=== PATIENT | male | born 1945 | race Caucasian/White ===

== ENCOUNTER 2022-03-22 09:44 | Inpatient (IN) | payer MEDICARE ==
[~2022-03-22] VITALS: Ht 152.4 cm; Wt 59.0 kg
[2022-03-22] MEDS ORDERED: SODIUM CHLORIDE 0.9% 1000ML 1,000 ML IV STA ×2 (10:02→10:53)
[2022-03-22 10:36] LABS: BASOPHILS % 2.9 % (0.0-1.0); EOSINOPHILS # (AUTO) 1.3 (0.0-0.4); HEMATOCRIT 24.1 % (38.2-49.6); HEMOGLOBIN 7.1 g/dL (14.0-18.0); LYMPHOCYTES % 6.1 % (18.0-39.1); MEAN CORPUSCULAR HEMOGLOBIN 22.5 pg (28-32); MEAN CORPUSCULAR HGB CONC 29.5 g/dL (31-35); MEAN CORPUSCULAR VOLUME 76.3 fL (81-99); MONOCYTES # (AUTO) 3.1 (0.2-0.8); MONOCYTES % 9.5 % (4.4-11.3); NEUTROPHILS # (AUTO) 19.6 (2.1-6.9); NEUTROPHILS % 59.8 % (38.7-80.0); PLATELET COUNT 239 x10e3/uL (140-360); RED BLOOD COUNT 3.16 x10e6/uL (4.3-5.7); RED CELL DISTRIBUTION WIDTH 19.4 % (11.7-14.4)
[2022-03-22 10:46] LABS: CLARITY,URINE TURBID (CLEAR); COLOR,URINE YELLOW (YELLOW); LEUKOCYTE ESTERASE ,URINE LARGE (NEGATIVE); NITRITE,URINE NEGATIVE (NEGATIVE); PROTEIN,URINE DIPSTICK 1+ (NEGATIVE)
[2022-03-22 10:47] LABS: BACTERIA,URINE MANY /HPF; EPITHELIAL CELLS,URINE FEW /LPF; KETONES,URINE NEGATIVE (NEGATIVE); RBC,URINE >50 /HPF (0-5); URINE UROBILINOGEN 0.2 mg/dL (0.2 - 1); WBC,URINE (MAN) >50 /HPF (0-5)
[2022-03-22 10:55] LABS: INR 1.14; PROTHROMBIN TIME 15.6 seconds (11.9-14.5)
[2022-03-22 10:56] LABS: PARTIAL THROMBOPLASTIN TIME 37.1 seconds (23.8-35.5)
[2022-03-22 10:59] LABS: ALBUMIN/GLOBULIN RATIO 0.9 (0.8-2.0); ANION GAP 11.8 mmol/L (8-16); CALCIUM 8.3 mg/dL (8.4-10.2); CREATININE, SERUM 0.75 mg/dL (0.72-1.25); MAGNESIUM 2.1 MG/DL (1.3-2.1); POTASSIUM 3.8 mmol/L (3.5-5.1)
[2022-03-22] MEDS ORDERED: Vancomycin IV 1 GM in SODIUM CHLORIDE 0.9% 250ML 250 ML IV ONE (11:00)
[2022-03-22] MEDS ORDERED: MEROPENEM 1 GM in SODIUM CHLORIDE 0.9% 100 ML IV ONE (11:00)
[2022-03-22 11:05] LABS: CREATINE KINASE MB 1.6 ng/mL (0-5.0)
[2022-03-22 11:18] LABS: ANISOCYTOSIS SLIGHT; BAND NEUTROPHILS % (MANUAL) 1 %; EOSINOPHILS % (MANUAL) 5 % (0-7); LYMPHOCYTES % (MANUAL) 9 % (19-48); METAMYELOCYTES % (MANUAL) 1 % (0-0); MONOCYTES % (MANUAL) 3 % (3.4-9.0); MYELOCYTES % (MANUAL) 4 % (0-0); NEUTROPHILS % (MANUAL) 74 % (40-74); PLATELET ESTIMATE ADEQUATE; PLATELET MORPHOLOGY COMMENT NORMAL; POIKILOCYTOSIS SLIGHT; RBC MORPHOLOGY COMMENT NORMAL
[2022-03-22] MEDS ORDERED: IOPAMIDOL 370 MG/ML 100 ML INFUS..BTL INJ ONE (11:33)
[2022-03-22] MEDS: SODIUM CHLORIDE 0.9% 1000ML 1,000 ML IV SCH (14:45)
[2022-03-22] MEDS: MEROPENEM 1 GM in SODIUM CHLORIDE 0.9% 100 ML IV SCH (14:45)
[2022-03-22] MEDS: ONDANSETRON HCL INJ 2MG/ML 2ML 2 MG/ML VIAL IV PRN (15:01)
[2022-03-22] MEDS: DOCUSATE SODIUM 100 MG CAP PO SCH (17:00)
[2022-03-22 17:02] VITALS: BP 122/55
[2022-03-22 17:53] VITALS: BP 122/55
[2022-03-22 18:00] LABS: FERRITIN 8.53 ng/mL (21.81-274.66)
[2022-03-22 18:01] VITALS: BP 122/55
[2022-03-22 20:00] VITALS: BP 121/61
[2022-03-22] MEDS: SENNOSIDES 8.6 MG TAB PO SCH (20:22)
[2022-03-22 20:23] LABS: CREATINE KINASE MB 1.9 ng/mL (0-5.0)
[2022-03-23] VITALS (7 sets, daily range): BP systolic 112–134; BP diastolic 55–77
[2022-03-23] MEDS: SODIUM CHLORIDE 0.9% 1000ML 1,000 ML IV SCH ×3 (02:10→20:40)
[2022-03-23] MEDS: MEROPENEM 1 GM in SODIUM CHLORIDE 0.9% 100 ML IV SCH ×2 (02:10→16:10)
[2022-03-23 05:41] LABS: BASOPHILS # (AUTO) 0.8 (0.0-0.1); BASOPHILS % 2.3 % (0.0-1.0); EOSINOPHILS # (AUTO) 1.2 (0.0-0.4); EOSINOPHILS % 3.7 % (0.0-6.0); HEMATOCRIT 21.3 % (38.2-49.6); LYMPHOCYTES # (AUTO) 1.6 (1.0-3.2); LYMPHOCYTES % 5.1 % (18.0-39.1); MEAN CORPUSCULAR HEMOGLOBIN 22.8 pg (28-32); MEAN CORPUSCULAR HGB CONC 30.5 g/dL (31-35); MEAN CORPUSCULAR VOLUME 74.7 fL (81-99); MONOCYTES # (AUTO) 2.6 (0.2-0.8); MONOCYTES % 7.9 % (4.4-11.3); NEUTROPHILS # (AUTO) 20.2 (2.1-6.9); NEUTROPHILS % 62.1 % (38.7-80.0); PLATELET COUNT 241 x10e3/uL (140-360); RED BLOOD COUNT 2.85 x10e6/uL (4.3-5.7); RED CELL DISTRIBUTION WIDTH 19.1 % (11.7-14.4)
[2022-03-23 05:53] LABS: HEMOGLOBIN 6.5 g/dL (14.0-18.0)
[2022-03-23 06:07] LABS: CREATINE KINASE MB 2.2 ng/mL (0-5.0)
[2022-03-23] MEDS ORDERED: SODIUM CHLORIDE 0.9% 250ML 250 ML IV ONE (06:15)
[2022-03-23 06:23] LABS: PHOSPHORUS 2.6 MG/DL (2.3-4.7)
[2022-03-23 06:29] LABS: ALBUMIN 2.7 g/dL (3.5-5.0); ALBUMIN/GLOBULIN RATIO 0.9 (0.8-2.0); ANION GAP 13.6 mmol/L (8-16); CALCIUM 7.7 mg/dL (8.4-10.2); CREATININE, SERUM 0.57 mg/dL (0.72-1.25); POTASSIUM 3.6 mmol/L (3.5-5.1)
[2022-03-23 08:09] LABS: BAND NEUTROPHILS % (MANUAL) 1 %; EOSINOPHILS % (MANUAL) 17 % (0-7); LYMPHOCYTES % (MANUAL) 4 % (19-48); METAMYELOCYTES % (MANUAL) 6 % (0-0); MONOCYTES % (MANUAL) 1 % (3.4-9.0); MYELOCYTES % (MANUAL) 10 % (0-0); NEUTROPHILS % (MANUAL) 59 % (40-74)
[2022-03-23 08:10] LABS: ANISOCYTOSIS MODERATE; HYPOCHROMASIA MODERATE; MICROCYTOSIS MODERATE; PLATELET ESTIMATE ADEQUATE; PLATELET MORPHOLOGY COMMENT FEW LARGE; RBC MORPHOLOGY COMMENT ABNORMAL
[2022-03-23] MEDS: SENNOSIDES 8.6 MG TAB PO SCH ×2 (09:00→20:40)
[2022-03-23] MEDS: DOCUSATE SODIUM 100 MG CAP PO SCH ×2 (09:00→16:10)
[2022-03-23] MEDS ORDERED: SODIUM CHLORIDE 0.9% 250ML 250 ML ONE (09:42)
[2022-03-23] MEDS: ONDANSETRON HCL INJ 2MG/ML 2ML 2 MG/ML VIAL IV PRN (09:45)
[2022-03-23] MEDS ORDERED: PANTOPRAZOLE SO40 MG PO (10:13)
[2022-03-23] MEDS ORDERED: CEPHALEXIN500 MG PO (10:13)
[2022-03-23] MEDS ORDERED: ELIQUIS2.5 MG PO (10:13)
[2022-03-23] MEDS ORDERED: SIMETHICONE80 MG PO (10:13)
[2022-03-23] MEDS ORDERED: CYMBALTA20 MG PO (10:13)
[2022-03-23] MEDS ORDERED: NEURONTIN100 MG PO (10:13)
[2022-03-23] MEDS ORDERED: ATORVASTATIN CA20 MG PO (10:13)
[2022-03-23] MEDS ORDERED: METOPROLOL TART25 MG PO (10:13)
[2022-03-23] MEDS ORDERED: CLOPIDOGREL75 MG PO (10:13)
[2022-03-23] MEDS ORDERED: TYLENOL325 MG PO (10:13)
[2022-03-23] MEDS ORDERED: MAGNESIUM OXID400 MG PO (10:13)
[2022-03-23] MEDS ORDERED: CYCLOBENZAPRINE5 MG PO (10:13)
[2022-03-23] MEDS ORDERED: NITROGLYCERIN0.4 MG SL (10:13)
[2022-03-23] MEDS ORDERED: MIRALAX17 GM PO (10:13)
[2022-03-23] MEDS ORDERED: SUCRALFATE1 GM PO (10:13)
[2022-03-23] MEDS ORDERED: MINIPRESS1 MG PO (10:13)
[2022-03-23] MEDS ORDERED: LACTULOSE20 GM/30 M PO (10:13)
[2022-03-23] MEDS ORDERED: PROAIR HFA INH8.5 GM INH (10:13)
[2022-03-23] MEDS ORDERED: SENOKOT-S TABL1 EACH PO (10:13)
[2022-03-23] MEDS ORDERED: ULTRAM50 MG PO (10:13)
[2022-03-23] MEDS ORDERED: ACETAMINOPHEN 325 MG TAB PO PRN (14:15)
[2022-03-23] MEDS: ACETAMIN/BUTALBITAL/CAFFEINE TAB PO PRN (15:44)
[2022-03-23] MEDS ORDERED: ACETAMIN/BUTALBITAL/CAFFEINE TAB PO PRN (15:45)
[2022-03-23 19:34] LABS: CREATINE KINASE MB 2.2 ng/mL (0-5.0)
[2022-03-23 20:45] LABS: HEMATOCRIT 26.7 % (38.2-49.6); HEMOGLOBIN 8.2 g/dL (14.0-18.0)
[2022-03-24] VITALS (7 sets, daily range): BP systolic 119–162; BP diastolic 62–97
[2022-03-24] MEDS: MEROPENEM 1 GM in SODIUM CHLORIDE 0.9% 100 ML IV SCH ×2 (02:32→15:33)
[2022-03-24 05:46] LABS: BASOPHILS # (AUTO) 1.9 (0.0-0.1); BASOPHILS % 3.9 % (0.0-1.0); EOSINOPHILS # (AUTO) 1.7 (0.0-0.4); EOSINOPHILS % 3.6 % (0.0-6.0); HEMATOCRIT 29.3 % (38.2-49.6); HEMOGLOBIN 9.2 g/dL (14.0-18.0); LYMPHOCYTES # (AUTO) 2.1 (1.0-3.2); LYMPHOCYTES % 4.4 % (18.0-39.1); MEAN CORPUSCULAR HEMOGLOBIN 24.5 pg (28-32); MEAN CORPUSCULAR HGB CONC 31.4 g/dL (31-35); MEAN CORPUSCULAR VOLUME 77.9 fL (81-99); MONOCYTES # (AUTO) 3.4 (0.2-0.8); NEUTROPHILS # (AUTO) 23.2 (2.1-6.9); NEUTROPHILS % 47.5 % (38.7-80.0); PLATELET COUNT 211 x10e3/uL (140-360); RED BLOOD COUNT 3.76 x10e6/uL (4.3-5.7); RED CELL DISTRIBUTION WIDTH 18.6 % (11.7-14.4)
[2022-03-24 06:02] LABS: ANION GAP 10.4 mmol/L (8-16); CREATININE, SERUM 0.61 mg/dL (0.72-1.25); MAGNESIUM 2.3 MG/DL (1.3-2.1); POTASSIUM 3.4 mmol/L (3.5-5.1)
[2022-03-24] MEDS: SODIUM CHLORIDE 0.9% 1000ML 1,000 ML IV SCH ×2 (06:44→18:16)
[2022-03-24 07:32] LABS: BAND NEUTROPHILS % (MANUAL) 7 %; EOSINOPHILS % (MANUAL) 3 % (0-7); LYMPHOCYTES % (MANUAL) 4 % (19-48); METAMYELOCYTES % (MANUAL) 7 % (0-0); MONOCYTES % (MANUAL) 4 % (3.4-9.0); MYELOCYTES % (MANUAL) 13 % (0-0); NEUTROPHILS % (MANUAL) 58 % (40-74); PROMYELOCYTES % (MANUAL) 2 % (0-0)
[2022-03-24 07:33] LABS: ANISOCYTOSIS MODERATE; HYPOCHROMASIA MODERATE; MICROCYTOSIS MODERATE; PLATELET ESTIMATE ADEQUATE; PLATELET MORPHOLOGY COMMENT FEW LARGE; POLYCHROMASIA FEW; RBC MORPHOLOGY COMMENT ABNORMAL
[2022-03-24] MEDS: DOCUSATE SODIUM 100 MG CAP PO SCH ×2 (08:43→18:07)
[2022-03-24] MEDS: SENNOSIDES 8.6 MG TAB PO SCH ×2 (08:43→22:09)
[2022-03-24] MEDS: SODIUM FERRIC GLUCONATE COMPLX 125 MG in SODIUM CHLORIDE 0.9% 100 ML IV SCH (08:44)
[2022-03-24] MEDS ORDERED: POTASSIUM PHOSPHATE 15 MM in SODIUM CHLORIDE 0.9% 250ML 250 ML IV ONE (09:00)
[2022-03-24] MEDS: METRONIDAZOLE 500MG/NS 100ML 100 ML IV SCH ×2 (10:26→18:07)
[2022-03-24] MEDS: ACETAMIN/BUTALBITAL/CAFFEINE TAB PO PRN (12:52)
[2022-03-25] VITALS (7 sets, daily range): BP systolic 105–147; BP diastolic 60–93
[2022-03-25] MEDS: METRONIDAZOLE 500MG/NS 100ML 100 ML IV SCH ×3 (01:53→17:00)
[2022-03-25] MEDS: MEROPENEM 1 GM in SODIUM CHLORIDE 0.9% 100 ML IV SCH ×2 (03:11→14:50)
[2022-03-25] MEDS: SODIUM CHLORIDE 0.9% 1000ML 1,000 ML IV SCH ×2 (06:18→16:25)
[2022-03-25] MEDS: SENNOSIDES 8.6 MG TAB PO SCH (08:10)
[2022-03-25] MEDS: DOCUSATE SODIUM 100 MG CAP PO SCH ×2 (08:10→16:24)
[2022-03-25] MEDS: ACETAMIN/BUTALBITAL/CAFFEINE TAB PO PRN ×2 (08:10→18:16)
[2022-03-25 08:21] LABS: BASOPHILS # (AUTO) 1.6 (0.0-0.1); BASOPHILS % 3.2 % (0.0-1.0); EOSINOPHILS # (AUTO) 1.7 (0.0-0.4); EOSINOPHILS % 3.5 % (0.0-6.0); HEMATOCRIT 27.5 % (38.2-49.6); HEMOGLOBIN 8.6 g/dL (14.0-18.0); LYMPHOCYTES % 4.1 % (18.0-39.1); MEAN CORPUSCULAR HGB CONC 31.3 g/dL (31-35); MEAN CORPUSCULAR VOLUME 76.8 fL (81-99); MONOCYTES # (AUTO) 4.2 (0.2-0.8); MONOCYTES % 8.6 % (4.4-11.3); NEUTROPHILS # (AUTO) 23.6 (2.1-6.9); NEUTROPHILS % 47.9 % (38.7-80.0); PLATELET COUNT 208 x10e3/uL (140-360); RED BLOOD COUNT 3.58 x10e6/uL (4.3-5.7); RED CELL DISTRIBUTION WIDTH 19.2 % (11.7-14.4)
[2022-03-25 09:23] LABS: BAND NEUTROPHILS % (MANUAL) 7 %; EOSINOPHILS % (MANUAL) 4 % (0-7); LYMPHOCYTES % (MANUAL) 4 % (19-48); METAMYELOCYTES % (MANUAL) 5 % (0-0); MONOCYTES % (MANUAL) 4 % (3.4-9.0); MYELOCYTES % (MANUAL) 6 % (0-0); NEUTROPHILS % (MANUAL) 66 % (40-74); PROMYELOCYTES % (MANUAL) 1 % (0-0)
[2022-03-25 09:24] LABS: ANISOCYTOSIS SLIGHT; HYPOCHROMASIA MODERATE; MICROCYTOSIS MODERATE; RBC MORPHOLOGY COMMENT ABNORMAL
[2022-03-25 09:25] LABS: PLATELET ESTIMATE ADEQUATE; PLATELET MORPHOLOGY COMMENT FEW GIANT
[2022-03-25 09:28] LABS: POTASSIUM 3.5 mmol/L (3.5-5.1)
[2022-03-25] MEDS: SODIUM FERRIC GLUCONATE COMPLX 125 MG in SODIUM CHLORIDE 0.9% 100 ML IV SCH (09:41)
[2022-03-25 10:08] LABS: PHOSPHORUS 2.3 MG/DL (2.3-4.7)
[2022-03-25] MEDS ORDERED: ONDANSETRON HCL 4 MG ORAL DISINTEGRATING TAB PO PRN (15:45)
[2022-03-25] MEDS ORDERED: PANTOPRAZOLE SOD 40 MG TABEC PO SCH (16:30)
[2022-03-26] MEDS ORDERED: FERROUS SULFATE 325 MG TAB PO SCH (18:00)
[2022-03-27] MEDS ORDERED: SODIUM FERRIC GLUCONATE COMPLX 125 MG in SODIUM CHLORIDE 0.9% 100 ML IV SCH (09:00)
== END 2022-03-25 18:35 | DRG 872 ==
LOC: ER 09:55 → ERHOLD 14:42 → MED/SURG3 16:40
PROVIDERS: ADMIT Internal Medicine; ATTEND Internal Medicine
PROC: 3E03329 Introduction of Other Anti-infective into Peripheral Vein, Percutaneous Approach (ICD-10-PCS; 2022-03-22)
PROC: 30233N1 Transfusion of Nonautologous Red Blood Cells into Peripheral Vein, Percutaneous Approach (ICD-10-PCS; 2022-03-23)
PROC: 02HV33Z Insertion of Infusion Device into Superior Vena Cava, Percutaneous Approach (ICD-10-PCS; principal; 2022-03-25)
DX: A41.51 Sepsis due to Escherichia coli [E. coli] (principal); N39.0 Urinary tract infection, site not specified; I69.354 Hemiplegia and hemiparesis following cerebral infarction affecting left non-dominant side; Z16.12 Extended spectrum beta lactamase (ESBL) resistance; E83.39 Other disorders of phosphorus metabolism; F03.90 Unspecified dementia, unspecified severity, without behavioral disturbance, psychotic disturbance, mood disturbance, and anxiety; Z89.612 Acquired absence of left leg above knee; K56.41 Fecal impaction; I10 Essential (primary) hypertension; I48.91 Unspecified atrial fibrillation; D64.9 Anemia, unspecified; M24.541 Contracture, right hand; I25.10 Atherosclerotic heart disease of native coronary artery without angina pectoris; D50.9 Iron deficiency anemia, unspecified; I73.9 Peripheral vascular disease, unspecified; E87.6 Hypokalemia; B96.20 Unspecified Escherichia coli [E. coli] as the cause of diseases classified elsewhere; Z91.018 Allergy to other foods; Z86.16 Personal history of COVID-19; Z89.511 Acquired absence of right leg below knee; Z20.822 Contact with and (suspected) exposure to COVID-19
CPT/HCPCS: 36415; 36569; 51700; 71045; 74177; 80048; 80053; 81001; 82550; 82553; 82607; 82728; 83540; 83605; 83690; 83735; 84100; 84132; 84466; 84484; 85014; 85018; 85025; 85610; 85730; 86850; 86900; 86920; 87040; 87086; 87186; 93005; 94799; 99285; J2185; J2405; J2916; J3370; J7030; J7050; P9016; Q9967